=== PATIENT | female | born 1960 | race American Indian/Alaskan Native ===

== ENCOUNTER 2016-09-03 06:52 | Day surgery (SDC) | payer MEDICAID, OTHER ==
[~2016-09-03 06:52] MED LIST: Midazolam 1 MG/ML 2 ML SDV ONE; fentaNYL 100 MCG/2 ML SDV ONE
[2016-09-03] MEDS ORDERED: Dextrose 5%-0.45% NaCl 1,000 ML IV SCH (07:00)
[2016-09-03] MEDS ORDERED: Sodium Chloride 0.9% 10 ML Syringe FLUSH PRN (07:00)
[2016-09-03] MEDS ORDERED: fentaNYL 100 MCG/2 ML SDV IV ONE ×3 (08:40→16:10)
[2016-09-03] MEDS ORDERED: Midazolam 1 MG/ML 2 ML SDV IV ONE ×4 (08:40→16:10)
--- NOTE | 2016-09-03 10:12 | OR ---
DATE: 09/03/2016 PROCEDURE: Esophagogastroduodenoscopy and multiple pinch biopsies. INSTRUMENT USED: GIF-H180 Olympus video panendoscope. PREMEDICATIONS: No oral topical anesthesia used. Fentanyl 100 mcg intravenous, Versed 2 mg intravenous. The procedure was done under pulse oximetry, BP recording, and personnel monitor. INDICATION: The patient with persistent multiple abdominal symptoms, and recently detected iron-deficiency anemia. Esophagogastroduodenoscopy is performed for detection of any active erosive lesions, Sorto's esophagus and/or malignancy also under consideration, H. pylori status to be determined, small bowel biopsies to be obtained for celiac disease if indicated, endoscopic hemostasis therapy if needed. DESCRIPTION OF PROCEDURE: The scope was passed with ease. Adequate visualization of the esophagus was made from proximal to distal areas. No upper esophageal lesions identified. No distal esophageal stricture. No uphill or downhill esophageal varices. No Brynn-Aranda tear. No evidence of erosive esophagitis by Newton criteria. No esophageal polyp or tumor mass identified. Z-line was seen at around 40 cm distal to the oral verge, configuration consistent with grade 1 by ZAP classification. No proximal gastric varices noted. Gastric fundus examination by retroflexion showed no polypoid lesions. No gastric ulcer, polyp, malignant mass, or vascular ectasia identified. Considerable deformity was noted at the pyloric channel. Duodenal bulb showed no ulcer. Visualized second part of the duodenum was unremarkable. Multiple pinch biopsies, 4 in number, were taken from different areas of the second part of the duodenum, and tissues were also obtained from the duodenal bulb at 9 o'clock and 12 o'clock positions and sent for any histopathologic evidence of celiac disease. Multiple pinch biopsies were also taken from the gastric antrum and proximal body and sent for PyloriTek test for H. pylori and histopathology. No bleeding was noted from any of the visualized areas at the completion of examination. Photographs were taken of the duodenal bulb, gastric antrum, fundus, and distal esophagus. IMPRESSION: Normal study. The patient tolerated the procedure well. [facility] /[id number]
--- NOTE | 2016-09-03 10:47 | LETTER ---
09/03/2016 Jemima John NP [facility] [address] [place] [address] RE: SERGOHAZEL LOUANN : 1960 Dear Ms. John: Ms. Hazel Deng had esophagogastroduodenoscopy done this morning and she tolerated the procedure well. I herewith send a copy of the endoscopy note and photographs for your review. Thank you. Sincerely, [facility] /[id number]
[2016-09-03 10:50] VITALS: BP 107/69
== END 2016-09-03 10:55 | disposition home or self-care (01) ==
LOC: DL.ENDO 06:52
PROVIDERS: ATTEND Internal Medicine Gastroenterology
DX: D50.9 Iron deficiency anemia, unspecified (principal); F32.9 Major depressive disorder, single episode, unspecified; Z87.891 Personal history of nicotine dependence; Z90.710 Acquired absence of both cervix and uterus; Z98.890 Other specified postprocedural states; Z79.899 Other long term (current) drug therapy; K27.9 Peptic ulcer, site unspecified, unspecified as acute or chronic, without hemorrhage or perforation
CPT/HCPCS: 43239; 87077; J2250; J3010; J7042

== ENCOUNTER → 2016-09-11 | Day surgery (SDC) | payer OTHER ==
[~2016-09-11] MED LIST changes: +Dextrose 5%-0.45% NaCl 1,000 ML IV SCH; +Midazolam 1 MG/ML 2 ML SDV IV ONE; +Sodium Chloride 0.9% 1,000 ML IV ONE; +Sodium Chloride 0.9% 10 ML Syringe FLUSH PRN; +fentaNYL 100 MCG/2 ML SDV IV ONE
[2016-09-11 10:50] VITALS: BP 114/62
--- NOTE | 2016-09-11 11:31 | LETTER ---
09/11/2016 Jemima John NP [facility] [address] [place] [address] RE: SERGOHAZEL LOUANN : 1960 Dear Ms. John: Ms. Hazel Deng had colonoscopic examination done this morning and she tolerated the procedure well. I herewith send a copy of the endoscopy note and photographs for your review. Thank you. Sincerely, [facility] /[id number]
--- NOTE | 2016-09-11 12:10 | OR ---
DATE: 09/11/2016 PROCEDURE: Total colonoscopy. INSTRUMENT USED: PCF-H180AL Olympus video colonoscope. PREMEDICATIONS: Fentanyl 125 mcg intravenous, Versed 4 mg intravenous, and nasal O2 cannula. The procedure was done under pulse oximetry, BP recording, and clinical research monitor. INDICATION: The patient with rectal bleeding and anemia. Colonoscopic examination is done for detection of any polypoid lesions and removal, endoscopic hemostasis therapy if needed. DESCRIPTION OF PROCEDURE: Initial rectal exam was unremarkable. Rigid anoscopy was normal. The colonoscope was passed up to the ileocecal area, photographs were taken of the normal-appearing cecum, identified by double-bulged ileocecal folds. The examination was quite prolonged due to the tortuosity of the colon and significant adhesions. No bleeding was noted from any of the visualized areas at the commencement of the examination. No stricture. No vascular ectasia. No large isolated ulcerations seen. No evidence of diffuse inflammatory bowel disease in the form of friability, contact bleeding, or ulcerations. No polyp or tumor mass identified. There was some fecal material scattered around limiting visualization of few areas. No bleeding was noted from any of the visualized areas at the completion of examination. Probing the proximal sides of folds and flexures using adequate distention and clearing up the stool material, withdrawal of the scope was made, cecum to rectum time over 6 minutes. Few scattered diverticula were noted. IMPRESSION: Diverticulosis. The patient tolerated the procedure well. [facility] /[id number]
== END ==
LOC: DL.ENDO 06:29
PROVIDERS: ATTEND Internal Medicine Gastroenterology
DX: K57.30 Diverticulosis of large intestine without perforation or abscess without bleeding (principal); D50.9 Iron deficiency anemia, unspecified; F31.9 Bipolar disorder, unspecified; F10.21 Alcohol dependence, in remission; Z87.11 Personal history of peptic ulcer disease; Z79.899 Other long term (current) drug therapy; Z90.710 Acquired absence of both cervix and uterus; Z87.891 Personal history of nicotine dependence; Z80.0 Family history of malignant neoplasm of digestive organs
CPT/HCPCS: 45378; J2250; J3010; J7030; J7042

== ENCOUNTER 2017-01-26 19:48 | Emergency (ER) | payer MEDICAID, OTHER ==
[2017-01-26] MEDS ORDERED: diphenhydrAMINE 50 MG Cap PO ONE (19:49)
[2017-01-26] MEDS ORDERED: EPINEPHrine 1 MG/ML SDV IM ONE (19:54)
[2017-01-26] MEDS ORDERED: methylPREDNISolone Sodium Succinate 125 MG/2 ML SDV IVPUSH ONE (19:54)
--- NOTE | 2017-01-26 20:03 | EDM.PDOC ---
ED HPI GENERAL MEDICAL PROBLEM - General Chief Complaint: Allergic Reaction Stated Complaint: BY AMBULANCE Time Seen by Provider: 01/26/17 19:59 Source of Information: Reports: Patient History Limitations: Reports: No Limitations - History of Present Illness INITIAL COMMENTS - FREE TEXT/NARRATIVE: C/o reaction to being bit by hornet on left index finger approximately 45 minutes ago. Arrival via ambulance, 50mg IV benadryl enroute for redness itching and swelling of feet. C/o feeling hard to breathe. - Related Data Allergies Allergy/AdvReac Type Severity Reaction Status Date / Time No Known Allergies Allergy Verified 01/26/17 19:55 Home Meds: Home Meds Acetaminophen [Tylenol] 650 mg PO Q4H PRN 06/04/14 [History] Calcium Carbonate/Vitamin D3 [Calcium 250+D] 1 tab PO BID 06/04/14 [History] Gabapentin [Neurontin] 300 mg PO TID 06/04/14 [History] Loratadine 10 mg PO DAILY PRN 06/04/14 [History] traMADol HCl [Ultram] 50 mg PO TID PRN 06/04/14 [History] Multivits,Stress Formula/Zinc [Stress B with Zinc Tablet] 1 tab PO DAILY [History] Pantoprazole Sodium [Protonix] 40 mg PO DAILY 09/02/16 [History] QUEtiapine [SEROquel] 100 mg PO BEDTIME 09/02/16 [History] [place] Carbonate 100 mg PO BID 09/03/16 [History] Past Medical History HEENT History: Reports: Impaired Vision, Other (See Below) Other HEENT History: WEARS GLASSES Cardiovascular History: Reports: Heart Murmur, Other (See Below) Other Cardiovascular History: MITRAL VALVE INSUFFICIENCY Respiratory History: Reports: None Gastrointestinal History: Reports: Cholelithiasis, Diverticulosis, PUD Genitourinary History: Reports: Renal Calculus, Other (See Below) Other Genitourinary History: ABCESS OF RIGHT BREAST 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 DEGENERATIVE DISC DISEASE LUMBOSACRAL. CLOSED FRACTURE OF DISTAL CLAVICLE. ROTATOR CUFF TENDINITIS, LEFT. RIGHT WRIST PAIN. ANKLE FRACTURE, LEFT Neurological History: Reports: Concussion, Other (See Below) Other Neuro History: BIPOLAR DISORDER. RLS Psychiatric History: Reports: Addiction, Anxiety, Depression, Other (See Below) Other Psychiatric History: POST ALCOHOL HABITUATION Endocrine/Metabolic History: Reports: None Hematologic History: Reports: Anemia, Iron Deficiency Immunologic History: Reports: None Oncologic (Cancer) History: Reports: None Dermatologic History: Reports: None - Infectious Disease History Infectious Disease History: Reports: Chicken Pox, Rubella - Past Surgical History HEENT Surgical History: Reports: Oral Surgery GI Surgical History: Reports: Colonoscopy, EGD, Other (See Below) Female Surgical History: Reports: Breast Biopsy, Hysterectomy, Tubal Ligation Musculoskeletal Surgical History: Reports: Other (See Below) Oncologic Surgical History: Reports: Biopsy of Breast Social & Family History - Family History Family Medical History: Noncontributory - Tobacco Use Smoking Status *Q: Former Smoker Years of Tobacco use: 30 Packs/Tins Daily: 0.5 Second Hand Smoke Exposure: Yes - Caffeine Use Caffeine Use: Reports: Coffee - Alcohol Use Days Per Week of Alcohol Use: 2 Number of Drinks Per Day: 5 Total Drinks Per Week: 10 - Recreational Drug Use Recreational Drug Use: No - Living Situation & Occupation Living situation: Reports: Occupation: Unemployed ED ROS ALLERGIC REACTION - Review of Systems Review Of Systems: See Below Constitutional: Reports: No Symptoms HEENT: Reports: No Symptoms Respiratory: Reports: Shortness of Breath. Denies: Wheezing Cardiovascular: Reports: No Symptoms GI/Abdominal: Reports: No Symptoms Musculoskeletal: Reports: No Symptoms Skin: Reports: Pruritis, Rash Neurological: Reports: No Symptoms ED EXAM GENERAL NO PERIP PULSE - Physical Exam Exam: See Below Exam Limited By: No Limitations General Appearance: Alert, Anxious Eye Exam: Bilateral Eye: EOMI Ears: Normal External Exam Throat/Mouth: Normal Inspection, Normal Lips Head: Atraumatic, Normocephalic Neck: Normal Inspection Respiratory/Chest: No Respiratory Distress, Lungs Clear, Normal Breath Sounds. No: Decreased Breath Sounds, Crackles, Rales, Wheezing Cardiovascular: Normal Peripheral Pulses, Regular Rate, Rhythm, Tachycardia GI/Abdominal: Normal Bowel Sounds Back Exam: Normal Inspection Neurological: Alert, Oriented, Normal Cognition Psychiatric: Anxious Skin Exam: Warm, Dry, Intact, Rash (red generalized upper body and extremities. , not noted on lower extremities, bilateral outer ankles excoriated from recent scratching.) Course - Vital Signs Last Recorded V/S: Last Vital Signs Temp 97.8 F 01/26/17 20:02 Pulse 124 H 01/26/17 20:02 Resp 22 H 01/26/17 20:02 BP 103/67 01/26/17 20:15 Pulse Ox 94 L 01/26/17 20:02 - Orders/Labs/Meds Labs: Laboratory Tests 01/26/17 01/26/17 Range/Units 20:30 20:30 WBC 11.5 H (5.0-10.0) 10^3/uL RBC 4.90 (4.2-5.4) 10^6/uL Hgb 13.6 (12.0-16.0) g/dL Hct 42.6 (37.0-47.0) % MCV 86.9 (80-100) fL MCH 27.8 (27.0-34.0) pg MCHC 31.9 L (33.0-35.0) g/dL Plt Count 166 (150-450) 10^3/uL Neut % (Auto) 68.8 (42.2-75.2) % Lymph % (Auto) 24.5 (20.5-50.1) % [place] % (Auto) 5.5 (2-8) % Eos % (Auto) 1.2 (1.0-3.0) % Baso % (Auto) 0.0 (0.0-1.0) % Sodium 145 (135-145) mmol/L Potassium 3.2 L (3.6-5.0) mmol/L Chloride 112 H (101-111) mmol/L Carbon Dioxide 20.0 L (21.0-31.0) mmol/L Anion Gap 16.2 BUN 17 (7-18) mg/dL Creatinine 1.1 (0.6-1.3) mg/dL Est Cr Clr Drug Dosing 56.69 mL/min Estimated GFR (MDRD) 52 BUN/Creatinine Ratio 15.45 Glucose 134 H (74-105) mg/dL Calcium 9.2 (8.4-10.2) mg/dl Total Bilirubin 0.3 (0.2-1.0) mg/dL AST 18 (10-42) IU/L ALT 11 (10-60) IU/L Alkaline Phosphatase 82 (42-121) IU/L Total Protein 6.9 (6.7-8.2) g/dl Albumin 4.0 (3.2-5.5) g/dl Globulin 2.9 Albumin/Globulin Ratio 1.38 Meds: Medications Discontinued Medications Generic Name Dose Route Start Last Admin Trade Name Adamaris PRN Reason Stop Dose Admin Diphenhydramine HCl Confirm 01/26/17 21:03 01/26/17 22:17 Benadryl Administered 01/26/17 21:04 Not Given Dose 150 mg .ROUTE .STK-MED ONE Epinephrine HCl 0.5 mg 01/26/17 19:54 01/26/17 19:59 Adrenalin 1:1000 IM 01/26/17 19:55 0.5 mg ONETIME ONE Administration Methylprednisolone Sodium Succinate 125 mg 01/26/17 19:54 01/26/17 19:59 Solu-Medrol IVPUSH 01/26/17 19:55 125 mg ONETIME ONE Administration Ondansetron HCl 4 mg 01/26/17 20:19 01/26/17 20:23 Zofran IV 01/26/17 20:20 4 mg ONETIME ONE Administration - Re-Assessments/Exams Free Text/Narrative Re-Assessment/Exam: 01/26/17 20:59 lungs clear bilaterally no wheeze. Rash resolving, itching improved. Departure - Departure Time of Disposition: 20:52 Disposition: Home, Self-Care 01 Condition: Good Clinical Impression: Allergic reaction to insect sting Qualifiers: Encounter type: initial encounter Injury intent: accidental or unintentional Qualified Code(s): T63.481A - Toxic effect of venom of other arthropod, accidental (unintentional), initial encounter - Discharge Information Instructions: Anaphylactic Reaction Referrals: PCP,None [Primary Care Provider] - Forms: ED Department Discharge Additional Instructions: Follow up with Primary provider to discuss epi pen benadryl 50mg every 4 hours x 3 doses then 25mg jean claude 4 hours for 24 hours Prednisone 40mg in am then 20mg daily for 5 days follow up if recurrent breathing difficulty avoid bee, hornet or wasp stings
[2017-01-26 20:16] VITALS: BP 103/67
[2017-01-26] MEDS ORDERED: Ondansetron 4 MG/2 ML SDV IV ONE (20:19)
[2017-01-26] MEDS ORDERED: diphenhydrAMINE 50 MG Cap ONE (21:03)
== END 2017-01-26 21:15 | disposition home or self-care (01) ==
LOC: DL.ED 19:48
DX: T63.481A Toxic effect of venom of other arthropod, accidental (unintentional), initial encounter (principal); L29.9 Pruritus, unspecified; H54.7 Unspecified visual loss; M81.0 Age-related osteoporosis without current pathological fracture; Z86.2 Personal history of diseases of the blood and blood-forming organs and certain disorders involving the immune mechanism; Z87.891 Personal history of nicotine dependence; Z98.51 Tubal ligation status; Z79.899 Other long term (current) drug therapy; Z90.710 Acquired absence of both cervix and uterus
CPT/HCPCS: 36415; 80053; 85025; 96372; 96374; 96375; 99283; J0171; J2405; J2930; Q0163

== ENCOUNTER 2017-10-14 23:48 | Emergency (ER) | payer MEDICAID ==
--- NOTE | 2017-10-14 23:39 | EDM.PDOC ---
ED HPI GENERAL MEDICAL PROBLEM - General Chief Complaint: Wound Recheck Stated Complaint: POST SURGICAL ISSUE - AMBULANCE Time Seen by Provider: 10/14/17 23:30 Source of Information: Reports: Patient History Limitations: Reports: No Limitations - History of Present Illness INITIAL COMMENTS - FREE TEXT/NARRATIVE: ED via [facility] with c/o pain to RUQ and increased redness to incision site. Cholecystectomy on 09/[address] Perez at [facility]. Follow up scheduled for this Thursday. Admits gabapentin and 2 40 ounce beers tonight to manage pain. Redness has been increasing for past 2 days. Right Upper Abdomen Pain Score (Numeric/FACES): 8 - Related Data Allergies Allergy/AdvReac Type Severity Reaction Status Date / Time No Known Allergies Allergy Verified 10/15/17 03:34 Home Meds: Home Meds Acetaminophen [Tylenol] 650 mg PO Q4H PRN 06/04/14 [History] Calcium Carbonate/Vitamin D3 [Calcium 250+D] 1 tab PO BID 06/04/14 [History] Gabapentin [Neurontin] 300 mg PO TID 06/04/14 [History] Loratadine 10 mg PO DAILY PRN 06/04/14 [History] traMADol HCl [Ultram] 50 mg PO TID PRN 06/04/14 [History] Multivits,Stress Formula/Zinc [Stress B with Zinc Tablet] 1 tab PO DAILY [History] Pantoprazole Sodium [Protonix] 40 mg PO DAILY 09/02/16 [History] QUEtiapine [SEROquel] 100 mg PO BEDTIME 09/02/16 [History] [place] Carbonate 100 mg PO BID 09/03/16 [History] Past Medical History HEENT History: Reports: Impaired Vision, Other (See Below) Other HEENT History: WEARS GLASSES Cardiovascular History: Reports: Heart Murmur, Other (See Below) Other Cardiovascular History: MITRAL VALVE INSUFFICIENCY Respiratory History: Reports: None Gastrointestinal History: Reports: Cholelithiasis, Diverticulosis, PUD Genitourinary History: Reports: Renal Calculus, Other (See Below) Other Genitourinary History: ABCESS OF RIGHT BREAST 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 DEGENERATIVE DISC DISEASE LUMBOSACRAL. CLOSED FRACTURE OF DISTAL CLAVICLE. ROTATOR CUFF TENDINITIS, LEFT. RIGHT WRIST PAIN. ANKLE FRACTURE, LEFT Neurological History: Reports: Concussion, Other (See Below) Other Neuro History: BIPOLAR DISORDER. RLS Psychiatric History: Reports: Addiction, Anxiety, Depression, Other (See Below) Other Psychiatric History: POST ALCOHOL HABITUATION Endocrine/Metabolic History: Reports: None Hematologic History: Reports: Anemia, Iron Deficiency Immunologic History: Reports: None Oncologic (Cancer) History: Reports: None Dermatologic History: Reports: None - Infectious Disease History Infectious Disease History: Reports: Chicken Pox, Rubella - Past Surgical History HEENT Surgical History: Reports: Oral Surgery GI Surgical History: Reports: Cholecystectomy, Colonoscopy, EGD, Other (See Below) Other GI Surgeries/Procedures: repair of perfurated ulcer Female Surgical History: Reports: Breast Biopsy, Hysterectomy, Tubal Ligation Musculoskeletal Surgical History: Reports: Other (See Below) Oncologic Surgical History: Reports: Biopsy of Breast Social & Family History - Family History Family Medical History: Noncontributory - Tobacco Use Smoking Status *Q: Current Every Day Smoker Years of Tobacco use: 40 Packs/Tins Daily: 0.5 Second Hand Smoke Exposure: Yes - Caffeine Use Caffeine Use: Reports: Coffee - Recreational Drug Use Recreational Drug Use: No - Living Situation & Occupation Living situation: Reports: Occupation: Unemployed ED ROS GENERAL - Review of Systems Review Of Systems: See Below Constitutional: Reports: Chills HEENT: Reports: No Symptoms Respiratory: Reports: No Symptoms Cardiovascular: Reports: No Symptoms GI/Abdominal: Reports: Abdominal Pain, Decreased Appetite. Denies: Anorexia, Constipation, Diarrhea, Nausea Musculoskeletal: Reports: No Symptoms Skin: Reports: Erythema, Wound (RUQ) Neurological: Reports: No Symptoms Psychiatric: Reports: No Symptoms ED EXAM, GENERAL - Physical Exam Exam: See Below Exam Limited By: No Limitations General Appearance: Alert, Mild Distress (with movment and palpation of RUQ) Eye Exam: Bilateral Eye: EOMI Ears: Normal External Exam, Normal TMs Nose: Normal Inspection Throat/Mouth: Normal Oropharynx Head: Atraumatic, Normocephalic Neck: Normal Inspection, Full Range of Motion. No: Lymphadenopathy (L), Lymphadenopathy (R) Respiratory/Chest: No Respiratory Distress Cardiovascular: Normal Peripheral Pulses, Regular Rate, Rhythm GI/Abdominal: Normal Bowel Sounds, Soft, Guarding (RUQ), Tender Extremities: Normal Inspection Neurological: Alert, Oriented, Normal Cognition, Other (strong odor ETOH) Skin Exam: Warm, Erythema (Area marked surrounding surgical wound for open cholecystectomy. Erythema, scant bloody drainage, warm and tender to light palpation). No: Normal Color, Jaundice Course - Vital Signs Last Recorded V/S: Last Vital Signs Temp 98.0 F 10/15/17 01:52 Pulse 87 10/15/17 01:52 Resp 16 10/15/17 01:52 BP 96/61 10/15/17 01:52 Pulse Ox 96 10/15/17 01:52 - Orders/Labs/Meds Orders: Active Orders 24 hr Category Date Time Status Abdomen Pelvis w Cont [CT] Urgent Exams 10/15/17 00:21 Taken CULTURE BLOOD [BC] Stat Lab 10/14/17 23:38 Received CULTURE BLOOD [BC] Stat Lab 10/14/17 23:42 Received Blood Culture x2 Reflex Set [OM.PC] Stat Oth 10/14/17 23:25 Ordered Labs: Laboratory Tests 10/14/17 10/14/17 10/14/17 Range/Units 23:42 23:42 23:42 WBC 9.2 (5.0-10.0) 10^3/uL RBC 3.86 L (4.2-5.4) 10^6/uL Hgb 11.7 L D (12.0-16.0) g/dL Hct 35.7 L (37.0-47.0) % MCV 92.5 D (80-100) fL MCH 30.3 (27.0-34.0) pg MCHC 32.8 L (33.0-35.0) g/dL Plt Count 181 (150-450) 10^3/uL Neut % (Auto) 64.4 (42.2-75.2) % Lymph % (Auto) 24.8 (20.5-50.1) % [place] % (Auto) 7.8 (2-8) % Eos % (Auto) 2.7 (1.0-3.0) % Baso % (Auto) 0.3 (0.0-1.0) % Sodium 139 (135-145) mmol/L Potassium 3.5 L (3.6-5.0) mmol/L Chloride 108 (101-111) mmol/L Carbon Dioxide 21.0 (21.0-31.0) mmol/L Anion Gap 13.5 BUN 9 (7-18) mg/dL Creatinine 0.6 (0.6-1.3) mg/dL Est Cr Clr Drug Dosing 98.01 mL/min Estimated GFR (MDRD) > 60 BUN/Creatinine Ratio 15.00 Glucose 98 (74-105) mg/dL Lactic Acid 1.7 (0.5-2.2) mmol/L Calcium 8.5 (8.4-10.2) mg/dl Total Bilirubin 0.3 (0.2-1.0) mg/dL AST 16 (10-42) IU/L ALT 12 (10-60) IU/L Alkaline Phosphatase 147 H (42-121) IU/L Total Protein 7.1 (6.7-8.2) g/dl Albumin 3.7 (3.2-5.5) g/dl Globulin 3.4 Albumin/Globulin Ratio 1.09 Amylase 48 (28-100) U/L Lipase 53 H (22-51) U/L Ethyl Alcohol mg/dL / Range/Units 23:42 WBC (5.0-10.0) 10^3/uL RBC (4.2-5.4) 10^6/uL Hgb (12.0-16.0) g/dL Hct (37.0-47.0) % MCV (80-100) fL MCH (27.0-34.0) pg MCHC (33.0-35.0) g/dL Plt Count (150-450) 10^3/uL Neut % (Auto) (42.2-75.2) % Lymph % (Auto) (20.5-50.1) % [place] % (Auto) (2-8) % Eos % (Auto) (1.0-3.0) % Baso % (Auto) (0.0-1.0) % Sodium (135-145) mmol/L Potassium (3.6-5.0) mmol/L Chloride (101-111) mmol/L Carbon Dioxide (21.0-31.0) mmol/L Anion Gap BUN (7-18) mg/dL Creatinine (0.6-1.3) mg/dL Est Cr Clr Drug Dosing mL/min Estimated GFR (MDRD) BUN/Creatinine Ratio Glucose (74-105) mg/dL Lactic Acid (0.5-2.2) mmol/L Calcium (8.4-10.2) mg/dl Total Bilirubin (0.2-1.0) mg/dL AST (10-42) IU/L ALT (10-60) IU/L Alkaline Phosphatase (42-121) IU/L Total Protein (6.7-8.2) g/dl Albumin (3.2-5.5) g/dl Globulin Albumin/Globulin Ratio Amylase (28-100) U/L Lipase (22-51) U/L Ethyl Alcohol 264 mg/dL Meds: Medications Discontinued Medications Generic Name Dose Route Start Last Admin Trade Name Freq PRN Reason Stop Dose Admin Hydrocodone Bitart/Acetaminophen Confirm 10/15/17 02:55 10/15/17 02:59 [place] 325-10 Mg Administered 10/15/17 02:56 Not Given Dose 2 tab .ROUTE .STK-MED ONE Piperacillin Sod/Tazobactam 100 mls @ 200 mls/hr 10/15/17 01:00 10/15/17 01: 50 Sod 3.375 gm/ Sodium Chloride IV 10/15/17 01:29 200 mls/hr ONETIME ONE Administration Sodium Chloride 1,000 mls @ 500 mls/hr 10/15/17 01:03 10/15/17 01:46 Normal Saline IV 10/15/17 03:02 500 mls/hr .BOLUS ONE Administration Iopamidol 100 ml 10/15/17 00:21 10/15/17 01:03 Isovue-300 (61%) IVPUSH 10/15/17 00:22 100 ml ONETIME ONE Administration Ketorolac Tromethamine 30 mg 10/15/17 01:03 10/15/17 01:47 Toradol IVPUSH 10/15/17 01:04 30 mg ONETIME ONE Administration - Radiology Interpretation Free Text/Narrative:: CT abdomen and pelvis : no acute findings, no free air, no significant fluid collection - Re-Assessments/Exams Free Text/Narrative Re-Assessment/Exam: 10/15/17 04:44 Dr Stewart here, [place] x 3 removed, small amount bloody purulent drainage. Irrigated with NS . packing with 2x2 covered with gauze. Departure - Departure Time of Disposition: 02:39 Disposition: Home, Self-Care 01 Condition: Good Clinical Impression: S/P cholecystectomy Superficial postoperative wound infection Qualifiers: Encounter type: initial encounter Qualified Code(s): T81.4XXA - Infection following a procedure, initial encounter - Discharge Information Instructions: Wound Infection, [id number] Referrals: PCP,Maximoobpranay [Primary Care Provider] - Forms: ED Department Discharge Additional Instructions: Out patient dressing change later today packing open wound portion with 2x2 follow up with Telephone call to surgeons office in am keep incision covered if draining light activity, avoid alcohol use tylenol 650mg every 4 hours as needed for discomfort hydrocodone 10/325 one every 6 hours as needed for pain #2 increase fluid intake urgent follow up if redness increasing, thick purulent drainage, fever clindamycin 300mg 4 times daily for one week - My Orders Last 24 Hours: My Active Orders 10/14/17 23:25 Blood Culture x2 Reflex Set [OM.PC] Stat 10/14/17 23:38 CULTURE BLOOD [BC] Stat 10/14/17 23:42 CULTURE BLOOD [BC] Stat 10/15/17 00:21 Abdomen Pelvis w Cont [CT] Urgent - Assessment/Plan Last 24 Hours: My Active Orders 10/14/17 23:25 Blood Culture x2 Reflex Set [OM.PC] Stat 10/14/17 23:38 CULTURE BLOOD [BC] Stat 10/14/17 23:42 CULTURE BLOOD [BC] Stat 10/15/17 00:21 Abdomen Pelvis w Cont [CT] Urgent
[2017-10-14] MEDS ORDERED: Acetaminophen/HYDROcodone 325-10 MG Tab PO ONE (23:49)
[2017-10-15 00:12] LABS: CHLORIDE,CL 108 mmol/L (101-111); SODIUM,NA 139 mmol/L (135-145)
[2017-10-15] MEDS ORDERED: Iopamidol 612 MG/ML 100 ML Bottle IVPUSH ONE (00:21)
[2017-10-15] MEDS ORDERED: Piperacillin/Tazobactam 3.375 GM in Sodium Chloride 0.9% 100 ML IV ONE (01:00)
[2017-10-15] MEDS ORDERED: Ketorolac 30 MG/ML SDV IVPUSH ONE (01:03)
[2017-10-15] MEDS ORDERED: Sodium Chloride 0.9% 1,000 ML IV ONE (01:03)
[2017-10-15 01:53] VITALS: BP 96/61
[2017-10-15] MEDS ORDERED: Acetaminophen/HYDROcodone 325-10 MG Tab ONE (02:55)
== END 2017-10-15 02:57 | disposition home or self-care (01) ==
LOC: DL.ED 23:48
DX: T81.4XXA Infection following a procedure, initial encounter (principal); F17.210 Nicotine dependence, cigarettes, uncomplicated; Z90.49 Acquired absence of other specified parts of digestive tract; Z79.899 Other long term (current) drug therapy
CPT/HCPCS: 36415; 74177; 80053; 82150; 83605; 83690; 85025; 87040; 96361; 96365; 96375; 99285; A9270; G0480; J1885; J2543; J7030; J7050; Q9967

== ENCOUNTER 2019-03-09 15:09 | Emergency (ER) | payer MEDICARE, MEDICAID ==
--- NOTE | 2019-03-09 15:25 | EDM.PDOC ---
ED HPI GENERAL MEDICAL PROBLEM - General Chief Complaint: Respiratory Problem Stated Complaint: SOB Time Seen by Provider: 03/09/19 15:25 Source of Information: Reports: Patient, Old Records, RN, RN Notes Reviewed History Limitations: Reports: No Limitations - History of Present Illness INITIAL COMMENTS - FREE TEXT/NARRATIVE: Patient presents to ER by POV with complaint of a runny nose, diarrhea and nausea since last Thursday. Seen Dr. Eason and was given something for nausea. Today she feels like she is having trouble breathing since she got up this morning. Went to the clinic and had a mammogram today and then wanted to be seen but patient states they wouldn't see her since she was having trouble breathing. Using Tylenol and Benadryl at home for her symptoms. Onset: Gradual Duration: Constant Location: Reports: Chest, Generalized Quality: Reports: Ache Severity: Moderate Improves with: Reports: None Worsens with: Reports: None Associated Symptoms: Reports: No Other Symptoms - Related Data Allergies Allergy/AdvReac Type Severity Reaction Status Date / Time No Known Allergies Allergy Verified 10/15/17 03:34 Home Meds: Home Meds Acetaminophen [Tylenol] 650 mg PO Q4H PRN 06/04/14 [History] Calcium Carbonate/Vitamin D3 [Calcium 250+D] 1 tab PO BID 06/04/14 [History] Gabapentin [Neurontin] 300 mg PO TID 06/04/14 [History] Loratadine 10 mg PO DAILY PRN 06/04/14 [History] traMADol HCl [Ultram] 50 mg PO TID PRN 06/04/14 [History] Multivits,Stress Formula/Zinc [Stress B with Zinc Tablet] 1 tab PO DAILY [History] Pantoprazole Sodium [Protonix] 40 mg PO DAILY 09/02/16 [History] QUEtiapine [SEROquel] 100 mg PO BEDTIME 09/02/16 [History] [place] Carbonate 100 mg PO BID 09/03/16 [History] Past Medical History HEENT History: Reports: Impaired Vision, Other (See Below) Other HEENT History: WEARS GLASSES Cardiovascular History: Reports: Heart Murmur, Other (See Below) Other Cardiovascular History: MITRAL VALVE INSUFFICIENCY Respiratory History: Reports: None Other Respiratory History: hx smoker Gastrointestinal History: Reports: Cholelithiasis, Diverticulosis, PUD Genitourinary History: Reports: Renal Calculus, Other (See Below) Other Genitourinary History: ABCESS OF RIGHT BREAST 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 DEGENERATIVE DISC DISEASE LUMBOSACRAL. CLOSED FRACTURE OF DISTAL CLAVICLE. ROTATOR CUFF TENDINITIS, LEFT. RIGHT WRIST PAIN. ANKLE FRACTURE, LEFT Neurological History: Reports: Concussion, Other (See Below) Other Neuro History: BIPOLAR DISORDER. RLS Psychiatric History: Reports: Addiction, Anxiety, Depression, Other (See Below) Other Psychiatric History: POST ALCOHOL HABITUATION Endocrine/Metabolic History: Reports: None Hematologic History: Reports: Anemia, Iron Deficiency Immunologic History: Reports: None Oncologic (Cancer) History: Reports: None Dermatologic History: Reports: None - Infectious Disease History Infectious Disease History: Reports: Chicken Pox, Rubella - Past Surgical History HEENT Surgical History: Reports: Oral Surgery GI Surgical History: Reports: Cholecystectomy, Colonoscopy, EGD, Other (See Below) Other GI Surgeries/Procedures: repair of perfurated ulcer Female Surgical History: Reports: Breast Biopsy, Hysterectomy, Tubal Ligation Musculoskeletal Surgical History: Reports: Other (See Below) Oncologic Surgical History: Reports: Biopsy of Breast Social & Family History - Family History Family Medical History: Noncontributory - Tobacco Use Smoking Status *Q: Current Every Day Smoker Tobacco Use Within Last Twelve Months: Cigarettes - Caffeine Use Caffeine Use: Reports: Coffee - Alcohol Use Alcohol Use History: Yes Date of Last Drink: 03/09/19 Alcohol Use Frequency: Binges - Living Situation & Occupation Living situation: Reports: Occupation: Unemployed ED ROS GENERAL - Review of Systems Review Of Systems: ROS reveals no pertinent complaints other than HPI. ED EXAM, GENERAL - Physical Exam Exam: See Below Exam Limited By: Intoxication General Appearance: Alert, WD/WN, No Apparent Distress Eye Exam: Bilateral Eye: Normal Inspection Nose: Normal Inspection, Normal Mucosa, No Blood Throat/Mouth: Normal Inspection, Normal Lips, Normal Oropharynx, Normal Voice, No Airway Compromise Head: Atraumatic, Normocephalic Neck: Normal Inspection, Supple, Non-Tender, Full Range of Motion Respiratory/Chest: No Respiratory Distress, No Accessory Muscle Use, Chest Non- Tender, Decreased Breath Sounds, Wheezing. No: Crackles, Rales, Rhonchi, Stridor Cardiovascular: Regular Rate, Rhythm, No Edema GI/Abdominal: Normal Bowel Sounds, Soft, Non-Tender, No Organomegaly, No Distention, No Abnormal Bruit, No Mass Back Exam: Normal Inspection Extremities: Normal Inspection, Normal Range of Motion, Non-Tender, Normal Capillary Refill, No Pedal Edema Neurological: Alert, Oriented, CN II-XII Intact, Normal Cognition, No Motor/ Sensory Deficits Psychiatric: Anxious Skin Exam: Warm, Dry, Intact, Normal Color, No Rash EKG INTERPRETATION EKG Date: 03/09/19 Time: 16:00 Rhythm: Other (sinus rhythm) Rate (Beats/Min): 94 [place]: RAD-Right [place] Deviation P-Wave: Present QRS: Other (Inferior Q waves. Baseline wander in lead (s) V3.) ST-T: Normal QT: Normal Comparison: NA - No Prior EKG Course - Vital Signs Last Recorded V/S: Last Vital Signs Temp 98.9 F 03/09/19 15:12 Pulse 88 03/09/19 16:38 Resp 24 H 03/09/19 15:12 BP 112/73 03/09/19 15:12 Pulse Ox 97 03/09/19 15:12 - Orders/Labs/Meds Orders: Active Orders 24 hr Category Date Time Status EKG 12 Lead [EKG Documentation Completion] [RC] STAT Care 03/09/19 15:29 Active RT Aerosol Therapy [RC] ASDIRECTED Care 03/09/19 15:29 Active RT Post Treatment Assessment [RC] Click to Edit Care 03/09/19 16:47 Ordered RT Pre-Treatment Assessment [RC] Click to Edit Care 03/09/19 16:47 Ordered Albuterol [Proventil HFA] Med 03/09/19 16:46 Once 6.7 gm INH ONETIME ONE Labs: Laboratory Tests 03/09/19 03/09/19 03/09/19 Range/Units 15:41 15:41 15:41 WBC 6.4 (5.0-10.0) 10^3/uL RBC 4.60 (4.2-5.4) 10^6/uL Hgb 13.8 D (12.0-16.0) g/dL Hct 40.6 (37.0-47.0) % MCV 88.3 D (80-100) fL MCH 30.0 (27.0-34.0) pg MCHC 34.0 (33.0-35.0) g/dL Plt Count 141 L (150-450) 10^3/uL Neut % (Auto) 49.1 (42.2-75.2) % Lymph % (Auto) 42.0 (20.5-50.1) % [place] % (Auto) 6.8 (2-8) % Eos % (Auto) 1.9 (1.0-3.0) % Baso % (Auto) 0.2 (0.0-1.0) % D-Dimer, Quantitative < 100 (0-400) ng/mL Sodium 136 (135-145) mmol/L Potassium 3.5 L (3.6-5.0) mmol/L Chloride 103 (101-111) mmol/L Carbon Dioxide 22.0 (21.0-31.0) mmol/L Anion Gap 14.5 BUN 9 (7-18) mg/dL Creatinine 0.6 (0.6-1.3) mg/dL Est Cr Clr Drug Dosing 100.60 mL/min Estimated GFR (MDRD) > 60 BUN/Creatinine Ratio 15.00 Glucose 87 (74-105) mg/dL Lactic Acid (0.5-2.2) mmol/L Calcium 8.6 (8.4-10.2) mg/dl Total Bilirubin 0.8 (0.2-1.0) mg/dL AST 24 (10-42) IU/L ALT 18 (10-60) IU/L Alkaline Phosphatase 97 (42-121) IU/L Troponin I < 0.02 (0.00-0.02) ng/ml Total Protein 6.9 (6.7-8.2) g/dl Albumin 3.9 (3.2-5.5) g/dl Globulin 3.0 Albumin/Globulin Ratio 1.30 Amylase 35 (28-100) U/L Lipase 43 (22-51) U/L Urine Color (YELLOW) Urine Appearance (CLEAR) Urine pH (5.0-9.0) Ur Specific [place] (1.005-1.030) Urine Protein (NEGATIVE) Urine Glucose (UA) (NEGATIVE) Urine Ketones (NEGATIVE) Urine Occult Blood (NEGATIVE) Urine Nitrite (NEGATIVE) Urine Bilirubin (NEGATIVE) Urine Urobilinogen (0.2-1.0) mg/dL Ur Leukocyte Esterase (NEGATIVE) Urine Opiates Screen (NEGATIVE) Ur Oxycodone Screen (NEGATIVE) Urine Methadone Screen (NEGATIVE) Ur Barbiturates Screen (NEGATIVE) U Tricyclic Antidepress (NEGATIVE) Ur Phencyclidine Scrn (NEGATIVE) Ur Amphetamine Screen (NEGATIVE) U Methamphetamines Scrn (NEGATIVE) Urine MDMA Screen (NEGATIVE) U Benzodiazepines Scrn (NEGATIVE) Urine Cocaine Screen (NEGATIVE) U Marijuana (THC) Screen (NEGATIVE) Ethyl Alcohol 178 mg/dL 03/09/19 03/09/19 03/09/19 Range/Units 15:41 15:49 15:49 WBC (5.0-10.0) 10^3/uL RBC (4.2-5.4) 10^6/uL Hgb (12.0-16.0) g/dL Hct (37.0-47.0) % MCV (80-100) fL MCH (27.0-34.0) pg MCHC (33.0-35.0) g/dL Plt Count (150-450) 10^3/uL Neut % (Auto) (42.2-75.2) % Lymph % (Auto) (20.5-50.1) % [place] % (Auto) (2-8) % Eos % (Auto) (1.0-3.0) % Baso % (Auto) (0.0-1.0) % D-Dimer, Quantitative (0-400) ng/mL Sodium (135-145) mmol/L Potassium (3.6-5.0) mmol/L Chloride (101-111) mmol/L Carbon Dioxide (21.0-31.0) mmol/L Anion Gap BUN (7-18) mg/dL Creatinine (0.6-1.3) mg/dL Est Cr Clr Drug Dosing mL/min Estimated GFR (MDRD) BUN/Creatinine Ratio Glucose (74-105) mg/dL Lactic Acid 2.2 (0.5-2.2) mmol/L Calcium (8.4-10.2) mg/dl Total Bilirubin (0.2-1.0) mg/dL AST (10-42) IU/L ALT (10-60) IU/L Alkaline Phosphatase (42-121) IU/L Troponin I (0.00-0.02) ng/ml Total Protein (6.7-8.2) g/dl Albumin (3.2-5.5) g/dl Globulin Albumin/Globulin Ratio Amylase (28-100) U/L Lipase (22-51) U/L Urine Color Yellow (YELLOW) Urine Appearance Clear (CLEAR) Urine pH 5.5 (5.0-9.0) Ur Specific [place] <= 1.005 (1.005-1.030) Urine Protein Negative (NEGATIVE) Urine Glucose (UA) Negative (NEGATIVE) Urine Ketones Negative (NEGATIVE) Urine Occult Blood Negative (NEGATIVE) Urine Nitrite Negative (NEGATIVE) Urine Bilirubin Negative (NEGATIVE) Urine Urobilinogen 0.2 (0.2-1.0) mg/dL Ur Leukocyte Esterase Negative (NEGATIVE) Urine Opiates Screen Negative (NEGATIVE) Ur Oxycodone Screen Negative (NEGATIVE) Urine Methadone Screen Negative (NEGATIVE) Ur Barbiturates Screen Negative (NEGATIVE) U Tricyclic Antidepress Negative (NEGATIVE) Ur Phencyclidine Scrn Negative (NEGATIVE) Ur Amphetamine Screen Negative (NEGATIVE) U Methamphetamines Scrn Negative (NEGATIVE) Urine MDMA Screen Negative (NEGATIVE) U Benzodiazepines Scrn Negative (NEGATIVE) Urine Cocaine Screen Negative (NEGATIVE) U Marijuana (THC) Screen Negative (NEGATIVE) Ethyl Alcohol mg/dL Influenza A/B: negative Meds: Medications Discontinued Medications Generic Name Dose Route Start Last Admin Trade Name Freq PRN Reason Stop Dose Admin Albuterol/Ipratropium 3 ml 03/09/19 15:29 03/09/19 16:38 Duoneb 3.0-0.5 Mg/3 Ml NEB 03/09/19 15:30 3 ml ONETIME ONE Administration - Radiology Interpretation Free Text/Narrative:: Chest x-ray: Subtle venous congestion and suggestion small dependent right pleural effusion since comparison to June 04, 2014. No lung mass, hilar lymphadenopathy or focal lobar pneumonia. See rad report. Departure - Departure Time of Disposition: 16:49 Disposition: Home, Self-Care 01 Condition: Good Clinical Impression: Acute exacerbation of chronic obstructive pulmonary disease (COPD), Tobacco dependence due to cigarettes Alcohol intoxication Qualifiers: Complication of substance-induced condition: uncomplicated Qualified Code(s): F10.920 - Alcohol use, unspecified with intoxication, uncomplicated - Discharge Information *PRESCRIPTION DRUG MONITORING PROGRAM REVIEWED*: No *COPY OF PRESCRIPTION DRUG MONITORING REPORT IN PATIENT CATIA: No Instructions: Chronic Obstructive Pulmonary Disease Exacerbation, Steps to Quit Smoking, [id number], Alcohol Intoxication Forms: ED Department Discharge Additional Instructions: Rx: Prednisone 20mg Rx: Zithromax 250mg Use the Albuterol Inhaler with spacer 2 puffs every four hours as needed. Try to quit smoking. Follow up in clinic in 4 to 5 days. - My Orders Last 24 Hours: My Active Orders 03/09/19 15:29 EKG 12 Lead [EKG Documentation Completion] [RC] STAT RT Aerosol Therapy [RC] ASDIRECTED 03/09/19 16:46 Albuterol [Proventil HFA] 6.7 gm INH ONETIME ONE 03/09/19 16:47 RT Post Treatment Assessment [RC] Click to Edit RT Pre-Treatment Assessment [RC] Click to Edit - Assessment/Plan Last 24 Hours: My Active Orders 03/09/19 15:29 EKG 12 Lead [EKG Documentation Completion] [RC] STAT RT Aerosol Therapy [RC] ASDIRECTED 03/09/19 16:46 Albuterol [Proventil HFA] 6.7 gm INH ONETIME ONE 03/09/19 16:47 RT Post Treatment Assessment [RC] Click to Edit RT Pre-Treatment Assessment [RC] Click to Edit
[2019-03-09] MEDS ORDERED: Albuterol/Ipratropium 3.0-0.5 MG/3 ML Neb Soln NEB ONE (15:29)
[2019-03-09 15:36] VITALS: BP 112/73
--- NOTE | 2019-03-09 16:03 | CR ---
EXAMINATION: Chest 1V Frontal SEX: Female AGE: 58 years CLINICAL HISTORY: 58-year-old female complaining of shortness of breath (emergency department). INTERPRETATION: (Upright AP portable chest) 1. Coarse accentuation perihilar lung markings suggesting mild venous congestion (blunting right costophrenic sulcus). 2. Bronchitis i.e. reactive airway disease. No air trapping. 3. Normal cardiac silhouette (mild chest rotation). Left-sided aortic arch. No alveolar edema. 4. No lung mass, hilar lymphadenopathy or focal lobar pneumonia. CONCLUSION: Subtle venous congestion and suggestion small dependent right pleural effusion since comparison film 04 June 2014. BNP? EKG? Clinical correlation please. No lung mass, hilar lymphadenopathy or focal lobar pneumonia.
[2019-03-09 16:12] LABS: ANION GAP 14.5; CHLORIDE,CL 103 mmol/L (101-111); SODIUM,NA 136 mmol/L (135-145)
[2019-03-09 16:40] VITALS: PULSE 88
[2019-03-09] MEDS ORDERED: Albuterol 6.7 GM Inhaler INH ONE (16:46)
== END 2019-03-09 17:10 | disposition home or self-care (01) ==
LOC: DL.ED 15:09
DX: J44.1 Chronic obstructive pulmonary disease with (acute) exacerbation (principal); F10.220 Alcohol dependence with intoxication, uncomplicated; R19.7 Diarrhea, unspecified; R11.0 Nausea; F17.210 Nicotine dependence, cigarettes, uncomplicated; Z90.710 Acquired absence of both cervix and uterus; Z98.51 Tubal ligation status; Z98.890 Other specified postprocedural states; Z90.49 Acquired absence of other specified parts of digestive tract
CPT/HCPCS: 36415; 71045; 80053; 80305-QW; 81003; 82150; 83605; 83690; 84484; 85025; 85379; 87804; 93005; 94640; 99285-25; A9270-GY; G0480; J7620-GY

== ENCOUNTER 2019-11-24 05:13 | Day surgery (SDC) | payer MEDICARE, MEDICAID ==
[2019-11-24] MEDS ORDERED: Midazolam 1 MG/ML 2 ML SDV IV ONE ×7 (05:14→06:39)
[2019-11-24] MEDS ORDERED: fentaNYL 100 MCG/2 ML SDV IV ONE ×5 (05:14→06:44)
[2019-11-24] MEDS ORDERED: Sodium Chloride 0.9% 10 ML Syringe FLUSH PRN (05:30)
[2019-11-24] MEDS ORDERED: Dextrose 5%-0.45% NaCl 1,000 ML IV SCH (05:30)
[2019-11-24] MEDS ORDERED: Midazolam 1 MG/ML 2 ML SDV ONE (06:09)
[2019-11-24] MEDS ORDERED: fentaNYL 100 MCG/2 ML SDV ONE (06:10)
[2019-11-24] MEDS ORDERED: Sodium Chloride 0.9% 1,000 ML IV ONE (07:03)
--- NOTE | 2019-11-24 08:17 | OR ---
DATE: 11/24/2019 PROCEDURES: Total colonoscopy and multiple pinch biopsies. INSTRUMENT USED: PCF-H190DL Olympus video colonoscope. PREMEDICATIONS: Fentanyl 175 mcg intravenous, Versed 4 mg intravenous, nasal O2 cannula. The procedure was done under pulse oximetry, BP recording, and youth nutritional monitor. INDICATIONS: The patient with chronic diarrhea and abdominal pain, unexplained and not responsive to medical measures. Colonoscopic examination is done for detection of any polypoid lesions and removal, biopsies to be obtained for microscopic colitis, endoscopic hemostasis therapy if needed. DESCRIPTION OF PROCEDURE: Initial rectal exam was unremarkable. Rigid anoscopy was normal. The colonoscope was passed with ease. Scattered diverticula were noted along with deformity. The scope was passed with ease up to the ileocecal area. Photographs were taken of the normal-appearing cecum, identified by thin- lipped ileocecal valve, preventing further advancement of the instrument to visualize terminal ileum. No bleeding was noted from any of the visualized areas at the commencement of the examination. The bowel preparation was found to be adequate, Sunburst scale 3 in all the regions. No stricture. No vascular ectasia. No large isolated ulcerations seen. No evidence of diffuse inflammatory bowel disease in the form of friability, contact bleeding, or ulcerations. No polyp or tumor mass identified. Probing the proximal sides of folds and flexures using adequate distention and clearing up the stool material, withdrawal of the scope was made. Multiple pinch biopsies were taken from the normal-appearing mucosa of the mid transverse colon, mid descending colon, and rectosigmoid, and sent for any histopathologic evidence of microscopic colitis. No bleeding was noted from any of the visualized areas at the completion of examination. IMPRESSION: Diverticulosis. The patient tolerated the procedure well. [facility] /[id number]
[2019-11-24 10:52] VITALS: BP 133/75; PULSE 72
== END 2019-11-24 09:08 | disposition home or self-care (01) ==
LOC: DL.ENDO 05:13
PROVIDERS: ATTEND Internal Medicine Gastroenterology
DX: K57.30 Diverticulosis of large intestine without perforation or abscess without bleeding (principal); K52.9 Noninfective gastroenteritis and colitis, unspecified; F31.9 Bipolar disorder, unspecified; F12.90 Cannabis use, unspecified, uncomplicated; F10.20 Alcohol dependence, uncomplicated; Z87.11 Personal history of peptic ulcer disease; Z98.890 Other specified postprocedural states
CPT/HCPCS: 45380; J2250; J3010; J7030; J7042